=== PATIENT | female | born 1945 | race Caucasian/White ===

== ENCOUNTER 2023-11-07 09:36 | Emergency (ER) | payer BC, SELFPAY ==
[2023-11-07 09:43] VITALS: BP 116/68
--- NOTE | 2023-11-07 11:15 | ED.GENMED ---
History of Present Illness
General
Chief Complaint: Musculo-Skeletal Complaint
Source: patient
Time Seen by Provider: 11/07/23 10:34
Nursing documentation reviewed up to this point in time: agreed with
Travel History
Have you had any contact with someone who has COVID-19?: No
Do you have any symptoms of coronavirus? Fever > 100 degrees, chills, cough, shortness of breath, sore throat, loss of taste or smell, muscle aches, or headache?: No
History of Present Illness
History of Present Illness:
Patient is a 78-year-old female who complains of left knee pain for the past 2 weeks. She denies injury and believes is arthritis present to the ER because of continued discomfort. She has with Ortho but for the next 2 weeks. She denies any
redness fever chills. She reports it is sore in the morning once she starts to walk pain seems to improve. She has been taken Motrin.
Review of Systems
Review of Systems
Allergies reviewed?: Yes
All Other Systems: ROS reviewed and negative except as documented in HPI and ROS
Constitutional: Reports no symptoms; Denies fever
Musculoskeletal: Reports other (Left knee pain)
Skin: Reports no symptoms
Neurological: Reports no symptoms
Psychiatric: Reports no symptoms
Phy Exam
General Physical Exam
General Presentation: well appearing
General age: appears stated age
General Skin: warm and dry
General Habitus: normal
General Mental: alert
General Hydration: appears well hydrated
Neurological Exam
Neurological Exam: alert and oriented x3
Musculoskeletal Exam
Musculoskeletal Exam: other (Normal inspection to left knee no erythema no effusion good flexion extension no pain with medial lateral stress strong distal pulses no calf tenderness or swelling)
Skin Exam
Skin Exam: normal color and warm/dry
Psychiatric Exam
Psychiatric Exam: normal mood/affect
Course
Orders/Labs/Results
Orders:
Orders
11/07/23 09:46
CR Knee - Left 4 Or More View* Urgent
Comment:
Reason For Exam: pain after pulling injury
11/07/23 11:14
Ibuprofen [Motrin] 600 mg PO NOW STA
Vital Signs
Initial and Last Documented VS:
Initial Vital Signs
Temp Pulse Resp BP Pulse Ox
98.4 F 60 16 116/68 98
11/07/23 09:43 11/07/23 09:43 11/07/23 09:43 11/07/23 09:43 11/07/23 09:43
Last Documented Vital Signs
Temp Pulse Resp BP Pulse Ox
98.4 F 60 16 116/68 98
11/07/23 09:43 11/07/23 09:43 11/07/23 09:43 11/07/23 09:43 11/07/23 09:43
*Radiology
Radiology exam reviewed: radiology read reviewed
*Pulse Oximetry
Patient hypoxic: no
*Critical Care Note
Total Time (30-74mins, 75-104mins- exclusive of procedures): Not Applicable
ED Attending Note
-
Portions of this chart may have been created with voice recognition software.� Occasional wrong word or��sound alike� substitutions may have occurred due to the inherent limitations of voice recognition software.
Discharge Plan
Departure
Patient Disposition: Home (Routine Discharge)
Date of Disposition: 11/07/23
Time of Disposition: 11:16
Patient with high blood pressure during this ER visit?: No
Discharge Problem:
Acute knee pain
Instructions: Knee Pain ED
Referrals:
Indra William DO [Family Provider] -
Adalberto Bueno MD [Active] -
Activity Restrictions/Additional Instructions:
As discussed take ibuprofen/Motrin 400 mg every 8 hours with food. You may alternate and take Tylenol in between 650 mg every 4-6 hours. Follow-up with either [facility] orthopedics as you have scheduled or you may call [facility] orthopedics.
Return if any worsening of symptoms include increasing pain fever chills or any further concern
Discharge Date and Time
Print Language: LIBYAN
[2023-11-07] MEDS: MOTRIN 600 MG PO (11:39)
== END 2023-11-07 11:42 | disposition home or self-care (01) ==
LOC: EMR 09:36
PROVIDERS: EMERGENCY PHYSICIAN Emergency Medicine; FAMILY PHYSICIAN Family Medicine Sports Medicine
DX: M25.562 Pain in left knee (principal)
CPT/HCPCS: 99283; 73564

== ENCOUNTER 2025-03-27 06:20 | Day surgery (SDC) | payer BC, SELFPAY | END 2025-03-27 09:29 | disposition home or self-care (01) | LOC: GI 06:20 | PROVIDERS: ATTENDING PHYSICIAN Specialist | DX: Z12.11 Encounter for screening for malignant neoplasm of colon (principal); K57.30 Diverticulosis of large intestine without perforation or abscess without bleeding; R97.8 Other abnormal tumor markers; D12.3 Benign neoplasm of transverse colon | CPT/HCPCS: 45380; 88305 ==